=== PATIENT | male | born 1950 | race Caucasian/White ===

== ENCOUNTER 2023-12-31 17:39 | Inpatient (IN) | payer OTHER ==
[~2023-12-31] VITALS: Ht 177.8 cm; Wt 83.0 kg
[2023-12-31 18:13] VITALS: BP 126/69; PULSE 86; RESP 18; TEMP 98.1; O2SAT 93
[2023-12-31 19:19] LABS: BASOPHILS # (AUTO) 0.1 K/uL (0.00-0.22); BASOPHILS % (AUTO) 0.5 % (0.0-2.0); EOSINOPHILS # (AUTO) 0.1 K/uL (0-0.4); EOSINOPHILS % (AUTO) 0.4 % (0.0-4.0); HEMATOCRIT 42.8 % (36-52); HEMOGLOBIN 14.1 g/dL (12.0-18.0); LYMPHOCYTES # (AUTO) 1.4 K/uL (2.0-11.5); LYMPHOCYTES % (AUTO) 8.1 % (20.5-51.1); MEAN CORPUSCULAR HEMOGLOBIN 30 pg (27-31); MEAN CORPUSCULAR HGB CONC 33 g/dL (33-37); MEAN CORPUSCULAR VOLUME 90.9 fL (80-94); MONOCYTES # (AUTO) 1.1 K/uL (0.8-1.0); MONOCYTES % (AUTO) 6.4 % (1.7-9.3); NEUTROPHILS # (AUTO) 14.4 K/uL (1.8-7.7); PLATELET COUNT (AUTO) 564 K/uL (140-450); RED BLOOD CELL COUNT(AUTO) 4.71 MIL/uL (4.20-6.10); RED CELL DISTRIBUTION WIDTH 15.2 % (11.6-13.7)
[2023-12-31 19:42] LABS: CALCIUM 9.5 mg/dL (8.5-10.1); CARBON DIOXIDE 26.8 mmol/L (21-32); CHLORIDE 97 mmol/L (98-107); CREATININE 0.9 mg/dL (0.6-1.3); GLUCOSE 133 mg/dL (74-106); POTASSIUM 3.8 mmol/L (3.5-5.1); SODIUM SERUM 134 mmol/L (136-145); UREA NITROGEN, BLOOD 20 mg/dL (7-18)
[2023-12-31 19:46] LABS: NEUTROPHILS % (AUTO) 84.6 % (42.2-75.2)
[2023-12-31] MEDS ORDERED: cefTRIAXone 1,000 MG VIAL ONE (20:34)
[2023-12-31] MEDS: ONDANSETRON 4 MG/2 ML VIAL IVP ONE (20:37)
[2023-12-31] MEDS: MORPHINE SULFATE 4 MG/ML SYR IVP ONE (20:42)
[2023-12-31 20:52] LABS: INR 1.05 (0.8-1.2); PARTIAL THROMBOPLASTIN TIME 32.2 secs (22-35.6)
[2023-12-31 21:01] LABS: LACTIC ACID 1.9 mmol/L (0.4-2.0)
[2023-12-31] MEDS: metroNIDAZOLE 500 MG/NS PREMIX 100 ML IV ONE (21:05)
[2023-12-31 21:08] LABS: ALANINE AMINOTRANSFERASE 19 U/L (12-78); ALBUMIN 3.3 g/dL (3.4-5.0); ALKALINE PHOSPHATASE 95 U/L (50-136); ASPARTATE AMINOTRANSFERASE 15 U/L (15-37); BILIRUBIN,DIRECT 0.2 mg/dL (0.0-0.3); TOTAL BILIRUBIN 0.5 mg/dL (0.0-1.0); TOTAL PROTEIN, SERUM 8.2 g/dL (6.4-8.2)
[2023-12-31] MEDS: NACL 0.9% 1,000 ML IV ONE (21:11)
[2023-12-31] MEDS ORDERED: ACETAMINOPHEN 325 MG TAB PO PRN (21:15)
[2023-12-31] MEDS: LACTATED RINGERS 1,000 ML IV SCH (22:00)
[2023-12-31] MEDS ORDERED: DULO30EC PO (22:44)
[2023-12-31] MEDS ORDERED: ATOR20TA PO (22:46)
[2023-12-31] MEDS ORDERED: HYDR-4004 PO (22:46)
[2023-12-31] MEDS ORDERED: AMLO10TA PO (22:48)
[2023-12-31] MEDS ORDERED: EMPA10TA PO (22:48)
[2023-12-31] MEDS ORDERED: PROP20TA29 PO (23:02)
[2023-12-31] MEDS ORDERED: CETI1SOL12 PO (23:02)
[2023-12-31] MEDS ORDERED: METF-346 PO (23:02)
[2023-12-31] MEDS ORDERED: GLIP5TER PO (23:02)
[2024-01-01] VITALS (10 sets, daily range): BP systolic 131–156; BP diastolic 67–80; PULSE 72–107; RESP 16–20; TEMP 97.2–98.3; O2SAT 72–98
[2024-01-01] MEDS: MORPHINE SULFATE 4 MG/ML SYR IVP PRN (01:47)
[2024-01-01 06:02] LABS: BASOPHILS # (AUTO) 0.1 K/uL (0.00-0.22); BASOPHILS % (AUTO) 0.5 % (0.0-2.0); EOSINOPHILS # (AUTO) 0.2 K/uL (0-0.4); EOSINOPHILS % (AUTO) 1.6 % (0.0-4.0); HEMATOCRIT 36.7 % (36-52); HEMOGLOBIN 12.1 g/dL (12.0-18.0); LYMPHOCYTES # (AUTO) 2.3 K/uL (2.0-11.5); LYMPHOCYTES % (AUTO) 20.8 % (20.5-51.1); MEAN CORPUSCULAR HEMOGLOBIN 30 pg (27-31); MEAN CORPUSCULAR HGB CONC 33 g/dL (33-37); MEAN CORPUSCULAR VOLUME 91.1 fL (80-94); MONOCYTES % (AUTO) 8.9 % (1.7-9.3); NEUTROPHILS # (AUTO) 7.5 K/uL (1.8-7.7); NEUTROPHILS % (AUTO) 68.2 % (42.2-75.2); PLATELET COUNT (AUTO) 456 K/uL (140-450); RED BLOOD CELL COUNT(AUTO) 4.03 MIL/uL (4.20-6.10); RED CELL DISTRIBUTION WIDTH 14.5 % (11.6-13.7); WHITE BLOOD COUNT (AUTO) 10.9 K/uL (4.8-10.8)
[2024-01-01 06:10] LABS: ALANINE AMINOTRANSFERASE 14 U/L (12-78); ALBUMIN 2.5 g/dL (3.4-5.0); ALKALINE PHOSPHATASE 73 U/L (50-136); ANION GAP 9.5 (8-16); ASPARTATE AMINOTRANSFERASE 12 U/L (15-37); CALCIUM 8.7 mg/dL (8.5-10.1); CHLORIDE 102 mmol/L (98-107); CREATININE 0.7 mg/dL (0.6-1.3); GLUCOSE 97 mg/dL (74-106); MAGNESIUM 1.6 mg/dL (1.8-2.4); PHOSPHORUS 3.3 mg/dL (2.5-4.9); POTASSIUM 3.5 mmol/L (3.5-5.1); SODIUM SERUM 137 mmol/L (136-145); TOTAL BILIRUBIN 0.4 mg/dL (0.0-1.0); TOTAL PROTEIN, SERUM 6.4 g/dL (6.4-8.2); UREA NITROGEN, BLOOD 14 mg/dL (7-18)
[2024-01-01] MEDS: ENOXAPARIN 40 MG/0.4 ML SYR SUBQ SCH (08:25)
[2024-01-01] MEDS: DEXT 5% / NACL 0.9% 500 ML IV ONE (10:54)
[2024-01-01] MEDS ORDERED: COMMUNICATION ORDER MC PRN (12:05)
[2024-01-01] MEDS ORDERED: DEXTROSE 50% 50 ML SYR IVP PRN (12:55)
[2024-01-01] MEDS ORDERED: SEVOFLURANE 250 ML BTL INH ONE (13:00)
[2024-01-01] MEDS: BUPIVACAINE-MPF 0.25% 30 ML VIAL INJ ONE (13:05)
[2024-01-01] MEDS: HYDROmorphone PFS 2 MG/ML SYR ONE (13:16)
[2024-01-01] MEDS: MAGNESIUM SULFATE 50% 1,000 MG in NACL 0.9% 50 ML IV SCH (13:30)
[2024-01-01] MEDS ORDERED: ONDANSETRON 4 MG/2 ML VIAL IVP PRN (14:55)
[2024-01-01] MEDS ORDERED: HYDROmorphone 1 MG/ML AMP IVP PRN (14:55)
[2024-01-01] MEDS: BLOOD GLUCOSE MONITORING 1 DEV DEV FS SCH (16:35)
[2024-01-01] MEDS: INSULIN LISPRO SLIDING SCALE 100 UNITS/ML VIAL SUBQ PRN (17:05)
[2024-01-01] MEDS: HYDROcodone/APAP 5/325 MG 1 TAB TAB PO PRN (19:32)
[2024-01-01] MEDS: MAGNESIUM OXIDE 400 MG TAB PO SCH (20:27)
[2024-01-02 01:43] VITALS: O2SAT 93
[2024-01-02 04:00] VITALS: BP 136/79; PULSE 83; RESP 16; TEMP 98.6; O2SAT 83
[2024-01-02 04:29] VITALS: PULSE 89; RESP 20; O2SAT 96
[2024-01-02 08:00] VITALS: BP 135/69; PULSE 107; PULSE 97; RESP 18; TEMP 97.9; O2SAT 83; O2SAT 93; O2SAT 95
[2024-01-02 09:07] VITALS: O2SAT 95
[2024-01-02] MEDS ORDERED: IBUP-2213 PO (11:48)
[2024-01-02] MEDS ORDERED: hydrALAZINE 20 MG/ML VIAL IVP PRN (12:15)
[2024-01-02 12:21] VITALS: BP 135/69; PULSE 72; RESP 72; TEMP 97.9
== END 2024-01-02 14:10 | disposition home or self-care (01) | DRG 330 ==
LOC: MED 17:39 → MTU 21:23
PROVIDERS: ADMIT Student in an Organized Health Care Education/Training Program; ATTEND Student in an Organized Health Care Education/Training Program
PROC: 0DBH4ZZ Excision of Cecum, Percutaneous Endoscopic Approach (ICD-10-PCS; 2024-01-01)
PROC: 0DTJ4ZZ Resection of Appendix, Percutaneous Endoscopic Approach (ICD-10-PCS; principal; 2024-01-01 13:00)
DX: K35.33 Acute appendicitis with perforation, localized peritonitis, and gangrene, with abscess (principal); E44.0 Moderate protein-calorie malnutrition; I10 Essential (primary) hypertension; E11.9 Type 2 diabetes mellitus without complications; Z88.0 Allergy status to penicillin; Z85.46 Personal history of malignant neoplasm of prostate; Z68.26 Body mass index [BMI] 26.0-26.9, adult
CPT/HCPCS: 36415; 71045; 74150; 80048; 80053; 80076; 82948; 83605; 83735; 84100; 84484; 85025; 85610; 85730; 86886; 86900; 86901; 87040; 87081; 88304; 93005; 96365; 96368; 96375; 99285; J0330; J0360; J0696; J1100; J1170; J1650; J1815; J2270; J2405; J2704; J3475; J3490; J7030; J7060; J7120; Q0092